=== PATIENT | male | born 1970 | race Caucasian/White ===

== ENCOUNTER 2016-08-29 09:01 | Observation (INO) | payer OTHER ==
[2016-08-29] MEDS ORDERED: diphenhydrAMINE HCL 50 MG/ML VIAL IV ONE (09:30)
[2016-08-29] MEDS ORDERED: NORMAL SALINE 1,000 ML IV ONE (09:30)
[2016-08-29] MEDS ORDERED: METOCLOPRAMIDE HCL 5 MG/ML VIAL IV ONE (09:30)
[2016-08-29] MEDS ORDERED: METOCLOPRAMIDE HCL 5 MG/ML VIAL ONE (09:39)
[2016-08-29] MEDS ORDERED: diphenhydrAMINE HCL 50 MG/ML VIAL ONE (09:39)
[2016-08-29 09:52] LABS: Hematocrit 44.7 % (42.0-52.0); Hemoglobin 15.6 gm/dL (13.5-18.0); Mean Cell Volume 88.2 fl (78-100); Mean Corpuscular Hemoglobin 30.8 pg (27-31); Mean Corpuscular Hgb Conc 34.9 g/dl (32-36); Mean Platelet Volume 9.8 fl (6.0-9.5); Neutrophil % 82.3 % (42-75.0); Platelet Count 264 K/mm3 (150-450); Red Blood Count 5.07 M/mm3 (4.7-6.0); Red Cell Distribution Width 13.2 % (11.5-14.0); White Blood Count 15.8 K/mm3 (4.0-10.5)
[2016-08-29 10:00] LABS: Albumin * 3.6 gm/dl (3.4-5.0); Anion Gap 10.7 mmol/L (6.8-13.8); BUN/Creatinine Ratio 14.9 (9.0-21.6); Bilirubin, Total 0.6 mg/dL (0.0-1.1); Ca. Corrected For Albumin 9.1 mg/dL (8.4-10.2); Calcium * 9.1 mg/dL (7.9-10.9); Carbon Dioxide 29.2 mmol/L (24-32.6); Magnesium 1.7 mg/dL (1.2-2.8); Potassium 3.9 mmol/L (3.4-4.6); Total Protein 7.5 gm/dL (6.2-8.2)
[2016-08-29] MEDS ORDERED: DIATRIZOATE MEGLU/DIATRIZO SOD 30 ML BTL ONE (10:02)
[2016-08-29] MEDS ORDERED: DIATRIZOATE MEGLU/DIATRIZO SOD 30 ML BTL PO ONE (10:04)
[2016-08-29 10:40] LABS: Urine Bilirubin Negative (NEGATIVE); Urine Blood Negative /ul (NEGATIVE); Urine Ketone Negative (NEGATIVE); Urine Nitrite Negative (NEGATIVE); Urine Protein 15 mg/dL (NEGATIVE); Urine Specific Gravity >=1.030 SP.GR. (1.005-1.030); Urine Urobilinogen Normal (NORMAL)
[2016-08-29 10:49] LABS: Urine Appearance Clear; Urine Bacteria None Seen; Urine Color Dark Yellow; Urine RBC None Seen /hpf (0-5); Urine WBC TRACE /hpf (0-5)
[2016-08-29 10:50] LABS: Urine Mucus Moderate - 2+
--- NOTE | 2016-08-29 11:25 | ERNOTE ---
Abdominal HPI - General Chief Complaint: Abdominal Pain Time Seen by Provider: 08/29/16 09:14 Source: patient Exam Limitations: no limitations - Immun/Allergies/Home Medications Immunizatons: IMMUNIZATION HX Immunizations Up to Date Yes History of Influenza Vaccine Yes Allergies/Adverse Reactions: Allergies Penicillins Allergy (Severe, Verified 08/29/16 09:12) Anaphylaxis Home Medications: HOME MEDICATIONS Gabapentin [Neurontin] 600 mg PO DAILY 08/29/16 [Last Taken Unknown] Pantoprazole Sodium [Protonix] 40 mg PO DAILY 08/29/16 [Last Taken Unknown] Venlafaxine HCl [Effexor] 75 mg PO DAILY 08/29/16 [Last Taken Unknown] - History of Present Illness Narrative: Patient presents with right lower quadrant abdominal pain since yesterday. He rates the pain as severe and noticed on the drive over that he could feel every bump in the road. Timing: constant Quality: severe Activities at Onset: none Modifying Factors - (Worsens): Present: movement Associated Symptoms: Present: nausea Prior Abdominal Problems: Present: none Review of Systems - Review of Systems Constitutional: Present: See HPI EYE: Present: no symptoms reported ENT: Present: no symptoms reported Respiratory: Present: no symptoms reported Cardiology: Present: no symptoms reported Gastrointestinal/Abdominal: Present: nausea, abdominal pain, eating less, drinking less Genitourinary: Present: no symptoms reported Musculoskeletal: Present: no symptoms reported Skin: Present: no symptoms reported Neurological: Present: no symptoms reported Endocrine: Present: no symptoms reported Hematologic/Lymphatic: Present: no symptoms reported Psych: Present: no symptoms reported - Patient's Past Medical History Patient History - Medical: Depression Patient History - Cardiac/Respiratory: Hypertension, Hyperlipidemia Patient History - Cancer: No Hx of Cancer Patient History - Other: None - Social History Living Situations: home Abuse History: No History of abuse Psych History: Hx of Depression Smoking Status: Current every day smoker Have you smoked in the past 12 months: Yes Alcohol Use: none Drug Use: none - Immunizations Immunizations Up to Date: Yes History of Influenza Vaccine: Yes Physical Exam - Physical Exam General Appearance: Present: wd/wn, alert, severe distress Eye Exam: Normal inspection: bilateral, PERRL: bilateral Ears, Nose, Throat: Present: normal ENT inspection, H, normal pharynx Neck: Present: normal inspection, nontender Respiratory: Present: no respiratory distress, normal breath sounds, no accessory muscle use, chest nontender, lungs clear Cardiovascular/Chest: Present: regular rate, rhythm, no murmur, normal peripheral pulses Gastrointestinal/Abdominal: Present: normal bowel sounds, nondistended, tenderness, guarding, rebound, McBurney sign Rectal Exam: Present: deferred Back Exam: Present: normal inspection, normal range of motion Extremity Exam: Present: normal inspection, non-tender, no edema, normal range of motion Neurological Exam: Present: alert, oriented, normal mood/affect Skin Exam: Present: normal color, warm/dry Lymphatic Exam: Present: no adenopathy ED Progress - Results and Orders Patient's Lab Results:: I have reviewed the patient's lab results. - Vital Signs Patient's Vital Signs:: I have reviewed the patient's vital signs. Vital Signs: Vital Signs 08/29/16 08/29/16 08/29/16 09:07 10:32 11:17 Temperature 36.8 C Pulse Rate 83 78 85 Respiratory 18 16 16 Rate Blood Pressure 148/109 124/87 131/86 O2 Sat by Pulse 95 94 99 Oximetry - CT/Ultrasound CT/Ultrasound Narrative: CT results were reviewed with the patient and he understands that this needs to go to the operating room for resolution. - Progress/Reassessment Chief Complaint: Abdominal Pain Progress:: Unchanged Plan - Plan Plan: The case was discussed with the surgeon and he agrees to take the patient to the operating room for appendectomy. He requested that we start IV antibiotics as there appears to be a small perforation around the appendix. Departure - Departure Clinical Impression: Appendicitis Qualifiers: Appendicitis type: acute appendicitis Acute appendicitis type: with localized peritonitis Qualified Code(s): K35.3 - Acute appendicitis with localized peritonitis Disposition: [facility] Condition: Fair
[2016-08-29] MEDS ORDERED: RINGERS SOLUTION,LACTATED 1,000 ML IV ONE ×4 (13:11→17:22)
[2016-08-29] MEDS: LEVOFLOXACIN/D5W 750 MG/150 ML BAG IV SCH (13:12)
--- NOTE | 2016-08-29 13:37 | HP ---
Chief Complaint - Chief Complaint Date of Service: 08/29/16 Time of Service: 13:31 Chief Complaint: RLQ abdominal pain History of Present Illness: Pt had onset of abdominal pain yesterday that has progressed and migrated to RLQ. Presented to ER with WBC of 15.[address] c/w acute appendicitis with microperforation. - Patient's Past Medical History Patient History - Medical: Depression Patient History - Cardiac/Respiratory: Hypertension, Hyperlipidemia Patient History - Cancer: No Hx of Cancer Patient History - Other: None - Social History Living Situations: home Abuse History: No History of abuse Psych History: Hx of Depression Smoking Status: Current every day smoker Have you smoked in the past 12 months: Yes Alcohol Use: none Drug Use: none - Immunizations Immunizations Up to Date: Yes History of Influenza Vaccine: Yes Review Of Systems (GEN) - Review of Systems Abdominal: Present: Nausea, Abdominal Pain Misc: All systems neg except as marked Immunizations: IMMUNIZATION HX Immunizations Up to Date Yes History of Influenza Vaccine Yes Allergies/Adverse Reactions: Allergies Allergy/AdvReac Type Severity Reaction Status Date / Time Penicillins Allergy Severe Anaphylaxis Verified 08/29/16 09:12 Home Medications: HOME MEDICATIONS Gabapentin [Neurontin] 600 mg PO DAILY 08/29/16 [Last Taken Unknown] Pantoprazole Sodium [Protonix] 40 mg PO DAILY 08/29/16 [Last Taken Unknown] Venlafaxine HCl [Effexor] 75 mg PO DAILY 08/29/16 [Last Taken Unknown] Exam - Exam Vital Signs: Vital Signs - Last Taken Temp 38.0 C H 08/29/16 12:55 Pulse 87 08/29/16 12:55 Resp 16 08/29/16 12:55 BP 121/78 08/29/16 12:55 Pulse Ox 97 08/29/16 12:55 Constitutional: Present: Alert, Oriented x3, Cooperative, Well developed, Well nourished, Moderate distress, Obese ENT Exam: Present: normal ENT inspection Eye Exam: bilateral eye: normal inspection Neck: Present: non-tender, full range of motion, supple, trachea midline. Absent: lymphadenopathy (R), lymphadenopathy (L) Respiratory: Present: normal breath sounds, no respiratory distress Cardiovascular/Chest: Present: regular rate, rhythm, no murmur Abdomen: Present: tender - RLQ, guarding - RLQ per ERP, hypoactive Extremity: Present: normal inspection Skin Exam: Present: normal color, warm/dry Neurologic: Present: no motor/sensory deficits Appearance: Present: appropriate appearance Eye contact: Present: cooperative, good eye contact Thoughts: Present: normal thought pattern Diagnostic Studies: Abnormal Lab Results 08/29/16 08/29/16 08/29/16 Range/Units 09:35 09:35 09:59 WBC 15.8 H (4.0-10.5) K/mm3 MPV 9.8 H (6.0-9.5) fl Immature Gran % (Auto) 0.80 H (0.001-0.429) % Immature Gran # (Auto) 0.12 H (0.000-0.0310) K/mm3 Neutrophils % 82.3 H (42-75.0) % Lymphocytes % 7.3 L (20-51) % Neutrophils # 13.0 H (1.3-6.0) K/mm3 Lymphocytes # 1.2 L (1.5-3.5) k/mm3 Monocytes # 1.2 H (0.0-1.0) k/mm3 Random Glucose 116 H (70-110) mg/dL Urine Protein 15 H (NEGATIVE) mg/dL Urine Mucus Moderate - 2+ H (NONE) Laboratory Results WBC 15.8 K/mm3 (4.0-10.5) H 08/29/16 09:35 RBC 5.07 M/mm3 (4.7-6.0) 08/29/16 09:35 Hgb 15.6 gm/dL (13.5-18.0) 08/29/16 09:35 Hct 44.7 % (42.0-52.0) 08/29/16 09:35 MCV 88.2 fl (78-100) 08/29/16 09:35 MCH 30.8 pg (27-31) 08/29/16 09:35 MCHC 34.9 g/dl (32-36) 08/29/16 09:35 RDW 13.2 % (11.5-14.0) 08/29/16 09:35 Plt Count 264 K/mm3 (150-450) 08/29/16 09:35 MPV 9.8 fl (6.0-9.5) H 08/29/16 09:35 Immature Gran % (Auto) 0.80 % (0.001-0.429) H 08/29/16 09:35 Immature Gran # (Auto) 0.12 K/mm3 (0.000-0.0310) H 08/29/16 09:35 Neutrophils % 82.3 % (42-75.0) H 08/29/16 09:35 Lymphocytes % 7.3 % (20-51) L 08/29/16 09:35 Monocytes % 7.8 % (0.0-9) 08/29/16 09:35 Eosinophils % 1.5 % (0.0-3.0) 08/29/16 09:35 Basophils % 0.3 % (0.0-1.0) 08/29/16 09:35 Nucleated RBC % 0.0 k/mm3 (0-1) 08/29/16 09:35 Neutrophils # 13.0 K/mm3 (1.3-6.0) H 08/29/16 09:35 Lymphocytes # 1.2 k/mm3 (1.5-3.5) L 08/29/16 09:35 Monocytes # 1.2 k/mm3 (0.0-1.0) H 08/29/16 09:35 Eosinophils # 0.2 k/mm3 (0.0-0.7) 08/29/16 09:35 Absolute Basophils 0.1 k/mm3 (0.0-0.1) 08/29/16 09:35 Sodium 138 mmol/L (132-142) 08/29/16 09:35 Plasma Sodium 138 mmol/L (130-142) 08/29/16 09:35 Potassium 3.9 mmol/L (3.4-4.6) 08/29/16 09:35 Chloride 102 mmol/L (97-106) 08/29/16 09:35 Carbon Dioxide 29.2 mmol/L (24-32.6) 08/29/16 09:35 Anion Gap 10.7 mmol/L (6.8-13.8) 08/29/16 09:35 BUN 14 mg/dL (6-23) 08/29/16 09:35 Creatinine 0.94 mg/dL (0.4-1.4) 08/29/16 09:35 Est GFR (Non-Af Amer) 92 mL/min (60-130) 08/29/16 09:35 BUN/Creatinine Ratio 14.9 (9.0-21.6) 08/29/16 09:35 Random Glucose 116 mg/dL (70-110) H 08/29/16 09:35 Lactic Acid, Venous 0.9 mmol/L (0.4-1.9) 08/29/16 09:35 Calcium 9.1 mg/dL (7.9-10.9) 08/29/16 09:35 Calcium Adj for Albumin 9.1 mg/dL (8.4-10.2) 08/29/16 09:35 Magnesium 1.7 mg/dL (1.2-2.8) 08/29/16 09:35 Total Bilirubin 0.6 mg/dL (0.0-1.1) 08/29/16 09:35 AST 16 U/L (0-48) 08/29/16 09:35 ALT 27 U/L (19-67) 08/29/16 09:35 Alkaline Phosphatase 71 U/L (50-170) 08/29/16 09:35 Total Protein 7.5 gm/dL (6.2-8.2) 08/29/16 09:35 Albumin 3.6 gm/dl (3.4-5.0) 08/29/16 09:35 Lipase 115 U/L (73-393) 08/29/16 09:35 Urine Color Dark yellow 08/29/16 09:59 Urine Appearance Clear 08/29/16 09:59 Urine pH 6.0 pH (5.0-7.0) 08/29/16 09:59 Ur Specific Lena >=1.030 SP.GR. (1.005-1.030) 08/29/16 09:59 Urine Protein 15 mg/dL (NEGATIVE) H 08/29/16 09:59 Urine Glucose (UA) Negative mg/dL (NEGATIVE) 08/29/16 09:59 Urine Ketones Negative mg/dL (NEGATIVE) 08/29/16 09:59 Urine Blood Negative /ul (NEGATIVE) 08/29/16 09:59 Urine Nitrate Negative (NEGATIVE) 08/29/16 09:59 Urine Bilirubin Negative mg/dl (NEGATIVE) 08/29/16 09:59 Prot Sulfosalicylic Acd Negative mg/dL (0) 08/29/16 09:59 Urine Urobilinogen Normal EU/dl (NORMAL) 08/29/16 09:59 Ur Leukocyte Esterase Negative /ul (NEGATIVE) 08/29/16 09:59 Urine RBC None seen /hpf (0-5) 08/29/16 09:59 Urine WBC Trace /hpf (0-5) 07 09:59 Ur Epithelial Cells Trace /hpf (0-5) 07 09:59 Urine Bacteria None seen (NONE) 08/29/16 09:59 Urine Mucus Moderate - 2+ (NONE) H 08/29/16 09:59 Urine Culture Comments No culture indicated 08/29/16 09:59 Assessment/Plan - Narrative Narrative: A: Acute appendicitis with microperforation P: Recommend laparoscopic appendectomy. Case d/w ERP who will bolus NS give levaquin/flagyl. The options, risks, and benefits of the intended procedure were reviewed fully. He seems to understand, asks appropriate questions, and desires to proceed. - Assessment/Plan (1) Acute appendicitis with localized peritonitis Problem: Acute
[2016-08-29] MEDS ORDERED: metroNIDAZOLE/SODIUM CHLORIDE 500 MG/100 ML BAG IV ONE (14:06)
[2016-08-29] MEDS ORDERED: BUPIVACAINE HCL/EPINEPHRINE 50 ML VIAL IJ ONE ×2 (16:10)
[2016-08-29] MEDS ORDERED: ALBUTEROL SULFATE 2.5 MG/0.5 ML VIAL.NEB IH ONE (17:52)
[2016-08-29] MEDS ORDERED: ALBUTEROL SULFATE 2.5 MG/3 ML VIAL.NEB IH ONE (17:53)
[2016-08-29] MEDS ORDERED: NALOXONE HCL 0.4 MG/ML VIAL IV PRN (18:01)
[2016-08-29] MEDS ORDERED: ONDANSETRON HCL/PF 2 MG/ML VIAL IV PRN ×2 (18:01→18:04)
[2016-08-29] MEDS ORDERED: diphenhydrAMINE HCL 50 MG/ML VIAL IV PRN (18:01)
[2016-08-29] MEDS ORDERED: HYDROmorphone HCL 2 MG/ML VIAL IV PRN (18:01)
[2016-08-29] MEDS ORDERED: PROMETHAZINE HCL 12.5 MG in DEXTROSE 5 % IN WATER 50 ML IV PRN ×2 (18:01)
--- NOTE | 2016-08-29 18:04 | OR ---
Operative Report - Dictated Report Narrative: Date: 08/29/2016 Preoperative diagnosis: Perforated acute appendicitis Postoperative diagnosis: Same, retrocecal appendix Procedure: Laparoscopy, converted to open procedure, open appendectomy Staff surgeon: Kiran Lowry M.D. Anesthesia: Gen. endotracheal EBL: 30 mL Specimen: Appendix in 2 parts Drains: None Complications: None apparent Description of procedure: The patient was placed in the supine position and following the smooth induction of general endotracheal anesthesia a Templeton catheter was inserted and the abdomen was prepped and draped in sterile fashion. All port sites were anesthetized with Marcaine prior to incision. A 5 mm infraumbilical incision was carried out and the abdomen was entered under direct vision with a 5 mm blunt port with the scope within the lumen of the trocar. The abdomen was then insufflated to a pressure 15 mmHg with carbon dioxide. Under direct vision and a 12 mm suprapubic port and a left lower quadrant 5 mm port were inserted. There was no significant purulence encountered in the abdominal cavity. There was perhaps less than 10 mL of reactive fluid. The terminal ileum and ileal fold of Treves were densely adherent in a fibrinous pocket surrounding the tip of the appendix these were taken down with blunt dissection. We were only able to partially exposed the tip of the appendix as this appendix was retrocecal in its takeoff and the tunnel was densely adherent to the retroperitoneum despite mobilizing the right colon and cecum laparoscopically. We therefore converted to an open procedure through a Ankit Bridger incision. The bowel was packed off and the cecum was mobilized the retro-cecal tunnel was developed with a finger fracture technique. This exposed the base of the appendix and we were able to disconnect the appendix using an Endo MAYA stapler. The remaining mesoappendix was taken down with a thunderbeat. Hemostasis appeared to be adequate. No significant purulence was encountered. The posterior fascial elements were then closed with a running stitch of heavy PDS as were the anterior fascial elements. All the incisions were closed with angelia and sterile dressings were applied. The patient tolerated the procedure well without any apparent complications. The Templeton was discontinued. The patient was discharged from the operating room in stable condition without apparent complications.
[2016-08-29] MEDS: oxyCODONE HCL/ACETAMINOPHEN 1 TAB TABLET PO PRN ×2 (19:16→23:26)
[2016-08-29] MEDS: MORPHINE SULFATE 2 MG/ML DISP.SYRIN IV PRN (19:16)
[2016-08-29] MEDS ORDERED: PANTOPRAZOLE SODIUM 40 MG TABLET.EC ONE (20:43)
[2016-08-29] MEDS: VENLAFAXINE HCL 75 MG TABLET PO SCH (20:45)
[2016-08-29] MEDS: PANTOPRAZOLE SODIUM 40 MG TABLET.EC PO SCH (20:46)
[2016-08-29] MEDS: GABAPENTIN 600 MG TABLET PO SCH (20:48)
[2016-08-30] MEDS: oxyCODONE HCL/ACETAMINOPHEN 1 TAB TABLET PO PRN ×2 (04:05→11:10)
[2016-08-30] MEDS: PANTOPRAZOLE SODIUM 40 MG TABLET.EC PO SCH (06:19)
[2016-08-30] MEDS: MORPHINE SULFATE 2 MG/ML DISP.SYRIN IV PRN (06:19)
[2016-08-30] MEDS: VENLAFAXINE HCL 75 MG TABLET PO SCH (08:44)
[2016-08-30] MEDS: GABAPENTIN 600 MG TABLET PO SCH ×2 (08:44→13:17)
[2016-08-30 11:18] VITALS: BP 128/83
--- NOTE | 2016-08-30 12:57 | PN ---
Subjective - Date and Time Seen Date: 08/30/16 Time: 12:55 Subjective Narrative: POD1 Ruptured appendicitis. Laparoscopy convert to open appendectomy Having some pain but not other complaints. Objective - Vitals Vitals: Last Vital Signs Temp 36.8 C 08/30/16 11:17 Pulse 86 08/30/16 11:17 Resp 18 08/30/16 11:17 BP 128/83 08/30/16 11:17 Pulse Ox 93 08/30/16 11:17 - Exam Constitutional: Present: Alert, Oriented x3, Cooperative, No distress Assessment/Plan Plan Narrative: A: Doing better than expected P: Will discharge pt. levaquin/flagyl x 7 days. FU 1 wk. No lifting > 20 lb. May shower. - Problems/Diagnosis (1) Acute appendicitis with localized peritonitis Problem: Resolved
[2016-08-30] MEDS: LEVOFLOXACIN/D5W 750 MG/150 ML BAG IV SCH (13:00)
--- NOTE | 2016-08-30 13:03 | DS ---
(1) Acute appendicitis with localized peritonitis Problem: Resolved Description of Stay: Pt presented to ER with clinically apparent ruptured appendicitis confirmed with diagnostic studies. Was taken to OR, see op note. Had to convert to open procedure. He has done better than expected postoperatively. He is tolerated PO well. Complains of moderate pain. He is afebrile. Will discharge to home. Scripts written: Levaquin 750 mg po daily x 7 days. Flagyl 500 mg po TID x 7 days. Motrin 800 mg po TID x 5 days. [place] 5/325 1-2 po q 4 hrs prn #60. He may shower. No lifting greater than 20 lb. x 6 weeks. Regular diet. Follow-up next . Procedures Performed: see notes below List Procedures: Diagnostic laparoscopy. Convert to open procedure. Open appendectomy. Discharge Disposition: Home self care Disposition: Home self-care Condition: Good Discharge Activity: No Lifting - No > 20 lb x 6 weeks Discharge Diet: General/regular food Complete Home Medications List: Complete Home Medication List: Gabapentin [Neurontin] 600 mg PO TID 08/29/16 Pantoprazole Sodium [Protonix] 40 mg PO DAILY 08/29/16 Venlafaxine HCl [Effexor] 150 mg PO DAILY 08/29/16
== END 2016-08-30 15:15 | disposition home or self-care (01) ==
LOC: ER 09:01 → AMB 13:02 → MS 18:03 → INTOOBSV 18:04 → OBSVTOIN 18:04
PROVIDERS: ADMIT Specialist; ATTEND Specialist
PROC: 0DTJ0ZZ Resection of Appendix, Open Approach (ICD-10-PCS; principal; 2016-08-29 14:00)
PROC: 0DJD4ZZ Inspection of Lower Intestinal Tract, Percutaneous Endoscopic Approach (ICD-10-PCS; 2016-08-30)
DX: K35.3 Acute appendicitis with localized peritonitis (principal); I10 Essential (primary) hypertension; E78.5 Hyperlipidemia, unspecified; F32.9 Major depressive disorder, single episode, unspecified; Z72.0 Tobacco use
CPT/HCPCS: 36415; 44960; 74177; 80053; 81001; 83605; 83690; 83735; 85025; 88304; 94640; 96365; 96374; 96375; 96376; 99285; G0378

== ENCOUNTER 2017-03-23 08:34 | Emergency (ER) | payer OTHER ==
[2017-03-23 08:47] VITALS: BP 149/104
[2017-03-23] MEDS ORDERED: LEVOFLOXACIN 500 MG TABLET PO ONE (09:07)
[2017-03-23] MEDS ORDERED: LEVOFLOXACIN 500 MG TABLET ONE (09:14)
--- NOTE | 2017-03-23 09:21 | ERNOTE ---
Medical Problem HPI - Narrative Date of Service: 03/23/17 - General Chief Complaint: General Assessment Time Seen by Provider: 03/23/17 08:59 Source: patient Exam Limitations: no limitations - Immun/Allergies/Home Medications Immunizations: IMMUNIZATION HX Immunizations Up to Date No: Unknown History of Influenza Vaccine Yes Hx Pneumococcal Vaccination No Allergies/Adverse Reactions: Allergies Penicillins Allergy (Severe, Verified 08/29/16 09:12) Anaphylaxis Home Medications: HOME MEDICATIONS Gabapentin [Neurontin] 600 mg PO TID 08/29/16 [Last Taken Unknown] Pantoprazole Sodium [Protonix] 40 mg PO DAILY 08/29/16 [Last Taken Unknown] Venlafaxine HCl [Effexor] 150 mg PO DAILY 08/29/16 [Last Taken Unknown] Cholecalciferol (Vitamin D3) [Vitamin D] 2,000 unit PO DAILY 03/23/17 [Last Taken Unknown] Clonidine HCl 0.4 mg PO HS 03/23/17 [Last Taken Unknown] Levofloxacin [Levaquin] 500 mg PO DAILY #9 tablet 03/23/17 [Last Taken Unknown] Lisinopril [Prinivil] 10 mg PO DAILY 03/23/17 [Last Taken Unknown] busPIRone HCL [Buspar] 15 mg PO BID 03/23/17 [Last Taken Unknown] - History of Present History Narrative: Patient presents for evaluation of ear ache, cough, sore throat. He has an influenza like illness 2 weeks ago, that had nearly resolved after 7-10 days but he then became increasingly ill with feeling feverish, increased cough, yellow productive sputum, ear aching, sore throat and sinus pressure. He is concerned about developing a bacterial infection. He also relates some intermittent LLQ abdominal pain but he as had that before and it is only minor, not the reasons he came in. No rash. No trouble breathing. No urinary Sx. Timing: constant, getting worse Severity: moderate Modifying Factors - (Improves): Present: other - nothing Modifying Factors - (Worsens): Present: other - nothing Review of Systems - Review of Systems Constitutional: Present: fever EYE: Absent: eye discharge ENT: Present: ear pain, nose congestion, sore throat. Absent: throat swelling Respiratory: Present: cough. Absent: shortness of breath Cardiology: Present: other - chest pain with cough only Gastrointestinal/Abdominal: Present: See HPI Genitourinary: Absent: dysuria Musculoskeletal: Present: other - myalgias Skin: Absent: rash Neurological: Absent: weakness - Patient's Past Medical History Patient History - Medical: Depression, Other Patient History - Cardiac/Respiratory: Hypertension, Hyperlipidemia Patient History - Cancer: No Hx of Cancer Patient History - Surgical Procedures: Appendectomy Patient History - Other: None - Family History Mother Family History - Medical: No pertinent hx Family History - Cardiac/Respiratory: No pertinent hx Family History - Cancer: No pertinent family hx Father Family History - Medical: No pertinent hx Family History - Cardiac/Respiratory: No pertinent hx Family History - Cancer: Esophageal - Social History Living Situations: significant other Abuse History: No History of abuse Psych History: Hx of Depression, Current tx/ever been on anti-depressants or anti-anxiety meds Smoking Status: Current every day smoker Have you smoked in the past 12 months: Yes Do you dip or chew tobacco: No Patient requests Smoking Cessation Consult: No Initiate information on Smoking Cessation: No Alcohol Use: none Drug Use: none - Immunizations Immunizations Up to Date: No - Unknown Hx Pneumococcal Vaccination: No History of Influenza Vaccine: Yes Physical Exam - Physical Exam General Appearance: Present: alert, no apparent distress, other - occasinoal harsh cough Head Exam: Present: normal inspection, no evidence of injury Eye Exam: Normal inspection: bilateral, PERRL: bilateral Ears, Nose, Throat: Present: other - mild posterior oropharyngeal erythema. No [employer], RPA or epiglottitis. Sinus congestion and drainage. Mild bilateral posterior oropharyngeal erythema,. Absent: dry mucous membranes Neck: Present: normal inspection, other - no miningeal sings Respiratory: Present: no respiratory distress, normal breath sounds, no accessory muscle use, lungs clear Cardiovascular/Chest: Present: regular rate, rhythm, normal peripheral pulses Gastrointestinal/Abdominal: Present: normal bowel sounds, nontender, nondistended, soft, other - I am noty able to elicit any tenderness in the abdomen at this time. Back Exam: Present: normal range of motion Extremity Exam: Present: normal inspection Neurological Exam: Present: alert, normal mood/affect, no motor/sensory deficits Skin Exam: Present: normal color, warm/dry. Absent: skin rash ED Progress - Vital Signs Patient's Vital Signs:: I have reviewed the patient's vital signs. Vital Signs: Vital Signs 03/23/17 08:37 Temperature 36.3 C L Pulse Rate 101 H Respiratory 16 Rate Blood Pressure 149/104 O2 Sat by Pulse 96 Oximetry - Progress/Reassessment Chief Complaint: General Assessment Progress Note-Subjective: 03/23/17 09:17 I offered the patient a full work up including labs/ua and imaging but he declines this. His primary concern was a bacterial infection. He understands risks abd benefits but declines w/u and would like ABx. I feel this is reasonsable at this juncture so will Rx. He is stable, non-toxic, no distress. Nothing to suggest sepsis, toxicity, acute abdomen or other acute life or limb threat. I stressed that he could return at any time if he changed his mind about having testing. Departure Clinical Impression: Bronchitis, Otitis media - Departure Disposition: Home self-care Condition: Stable Instructions: Cough, Adult, [id number] Additional Instructions: Rest. Fluids. Follow-up with your doctor in 3 days for a re-check. Return if you change your mind about having the testing we discussed, if you develop trouble breathing, rash or if your condition worsens or changes in any way. Prescriptions: Levofloxacin [Levaquin] 500 mg PO DAILY #9 tablet
== END 2017-03-23 09:20 | disposition home or self-care (01) ==
LOC: ER 08:34
DX: J40 Bronchitis, not specified as acute or chronic (principal); H66.90 Otitis media, unspecified, unspecified ear; I10 Essential (primary) hypertension; E78.5 Hyperlipidemia, unspecified